=== PATIENT | female | born 2000 | race African-American/Black ===

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

== ENCOUNTER 2021-03-11 07:54 | Emergency (ER) | payer SELFPAY ==
[2021-03-11] MEDS ORDERED: Ondansetron ODT 4 MG TAB ONE (08:29)
[2021-03-11 20:55] LABS: SARS-CoV-2 PCR by NAA DETECTED (NotDetected)
== END 2021-03-11 09:12 | disposition home or self-care (01) ==
LOC: NAV ERS 07:54
DX: U07.1 COVID-19 (principal)
CPT/HCPCS: 87804; 99283; Q0162; U0003; U0005

== ENCOUNTER 2022-02-26 16:07 | Emergency (ER) | payer SELFPAY ==
[2022-02-26 16:32] LABS: Bilirubin Negative (Negative); Blood, Urine Large (Negative); Glucose, Urine (Dipstick) Negative (Negative); Ketone, Urine Trace mg/dL (Negative); Leukocyte Large (Negative); Nitrite Negative (Negative); Protein, Urine (Dipstick) 100 mg/dL (Neg-Trace); pH, Urine 7.5 (5.0-9.0)
[2022-02-26 16:44] LABS: Clarity Hazy (Clear)
[2022-02-26 16:45] LABS: Pregnancy Test - Urine (BHCG) Negative (Negative); Pregu Control Bar Appear? YES (CONTROL BAR)
[2022-02-26 16:46] LABS: Pregu Control Background? CLEAR/WHITE (CLR/WHITE)
[2022-02-26 16:48] LABS: Bacteria/HPF 3+ HPF (None Seen); Squamous Epithelial 0-3 HPF (0-3); WBC/HPF 21-50 HPF (0-3)
[2022-02-26 17:12] LABS: Wet Prep Trichomonas Trichomonas Absent (None Seen)
[2022-02-26 17:13] LABS: Wet Prep Clue Cells Clue Cells PRESENT (None Seen)
[2022-02-26] MEDS ORDERED: metroNIDAZOLE 500 MG TAB ONE (18:37)
== END 2022-02-26 18:48 | disposition home or self-care (01) ==
LOC: NAV ERS 16:07
DX: N76.0 Acute vaginitis (principal)
CPT/HCPCS: 81003; 81015; 81025; 87077; 87086; 87210; 87491; 87591; 87661; 99283

== ENCOUNTER 2022-03-10 01:18 | Emergency (ER) | payer SELFPAY | END 2022-03-10 02:00 | disposition home or self-care (01) | LOC: NAV ERS 01:18 | DX: B34.9 Viral infection, unspecified (principal) | CPT/HCPCS: 87804; 99283 ==

== ENCOUNTER 2022-07-13 07:34 | Emergency (ER) | payer SELFPAY | END 2022-07-13 08:45 | disposition home or self-care (01) | LOC: NAV ERS 07:34 | DX: J06.9 Acute upper respiratory infection, unspecified (principal) | CPT/HCPCS: 87081; 87430; 99283 ==

== ENCOUNTER 2025-02-13 17:21 | Emergency (ER) | payer OTHER ==
[2025-02-13] MEDS ORDERED: Acetaminophen 500 MG TAB ONE (17:44)
== END 2025-02-13 18:14 | disposition home or self-care (01) ==
LOC: NAV ERS 17:21
DX: O10.913 Unspecified pre-existing hypertension complicating pregnancy, third trimester (principal); Z3A.28 28 weeks gestation of pregnancy; O99.891 Other specified diseases and conditions complicating pregnancy; F43.0 Acute stress reaction; Z79.82 Long term (current) use of aspirin
CPT/HCPCS: 36416; 99284